=== PATIENT | female | born 1970 | race Caucasian/White ===

== ENCOUNTER → 2020-05-13 | Outpatient (CLI) | payer OTHER ==
--- NOTE | 2020-05-13 11:02 | Diagnostic Imaging Report ---
INDICATION: Kidney stone, follow-up. TIME OF EXAM: 10:27 AM COMPARISON: No prior studies are available for comparison. FINDINGS: There are surgical clips in the gallbladder fossa. Bowel gas pattern is nonobstructed. No definite radiopaque urinary tract calculi are seen. IMPRESSION: No definite radiopaque urinary tract calculi are identified. Dictated by: Dictated on workstation # [id number]
== END ==
LOC: RAD 10:20
PROVIDERS: ATTEND Urology
DX: N20.0 Calculus of kidney (principal)
CPT/HCPCS: 74018